=== PATIENT | male | born 1995 | race Caucasian/White ===

== ENCOUNTER 2017-03-18 16:42 | Emergency (ER) | payer MEDICAID ==
[~2017-03-18] VITALS: Ht 175.3 cm; Wt 68.0 kg
[2017-03-18 17:37] VITALS: BP 145/86
== END 2017-03-18 17:56 | disposition home or self-care (01) ==
LOC: ER 16:44
DX: G89.29 Other chronic pain (principal); M25.571 Pain in right ankle and joints of right foot; Z76.0 Encounter for issue of repeat prescription; Z88.6 Allergy status to analgesic agent

== ENCOUNTER 2017-03-26 15:06 | Emergency (ER) | payer MEDICAID ==
[~2017-03-26] VITALS: Ht 175.3 cm; Wt 68.0 kg
[2017-03-26 15:40] VITALS: BP 126/73
== END 2017-03-26 16:26 | disposition home or self-care (01) ==
LOC: ER 15:15
DX: G89.29 Other chronic pain (principal); M79.671 Pain in right foot; Z76.0 Encounter for issue of repeat prescription; Z88.6 Allergy status to analgesic agent